=== PATIENT | female | born 1955 | race Caucasian/White ===

== ENCOUNTER → 2021-06-27 | Outpatient (CLI) | payer BC | LOC: MC.RAD 08:59 | DX: Z12.31 Encounter for screening mammogram for malignant neoplasm of breast (principal); R92.0 Mammographic microcalcification found on diagnostic imaging of breast ==

== ENCOUNTER → 2021-07-04 | Outpatient (CLI) | payer BC | LOC: MC.RAD 09:00 | DX: R92.0 Mammographic microcalcification found on diagnostic imaging of breast (principal) ==

== ENCOUNTER → 2021-07-16 | Outpatient (CLI) | payer BC | LOC: MC.RAD 08:23 | DX: N63.10 Unspecified lump in the right breast, unspecified quadrant (principal) ==

== ENCOUNTER → 2021-07-31 | Outpatient (CLI) | payer BC ==
[~2021-07-31] MED LIST: MULTI VITAMINS1 TAB PO; NORCO 325 MG-51 TAB PO; VITAMIN B COMPL1 T16 PO; VITAMIN C500 MG PO
== END ==
LOC: MC.RAD 13:29
DX: Z01.818 Encounter for other preprocedural examination (principal); N63.10 Unspecified lump in the right breast, unspecified quadrant

== ENCOUNTER 2021-08-05 07:26 | Day surgery (SDC) | payer BC ==
[~2021-08-05] VITALS: Ht 172.7 cm; Wt 80.7 kg
[2021-08-05] MEDS ORDERED: MULTI VITAMINS1 TAB PO (08:09)
[2021-08-05] MEDS ORDERED: VITAMIN C500 MG PO (08:09)
[2021-08-05] MEDS ORDERED: VITAMIN B COMPL1 T16 PO (08:11)
[2021-08-05 08:23] VITALS: BP 139/81; PULSE 63; TEMP 97.9
[2021-08-05 10:30] VITALS: BP 119/58; PULSE 69; TEMP 97.3
--- NOTE | 2021-08-05 10:30 | NUR ---
Patient escorted to patient entrace via wheelchair by SOPHIE Araiza. Patient left in the care of her .
--- NOTE | 2021-08-05 10:30 | NUR ---
Patient arrived back into [facility] from OR. Report received from SOPHIE Montgomery and MARTA Vogel. Patient complaining of pain. Awakens to voical stimuli.
[2021-08-05] MEDS ORDERED: NORCO 325 MG-51 TAB PO (10:36)
--- NOTE | 2021-08-05 10:43 | NUR ---
Patient reports having pain. PRN toradol given per MAR. Patient requesting water and toast. Tolerating both well.
[2021-08-05 10:45] VITALS: BP 122/55; PULSE 59
[2021-08-05 11:00] VITALS: BP 125/57; PULSE 65
--- NOTE | 2021-08-05 11:20 | NUR ---
Patient reporting pain is tolerable but discomfort is present. Tolerated food and drink well. Voided. Went through discharge instructions with patient and her , Osmany, questions answered, verbalized understanding to education. IV removed without complications. Patient got dressed with the assistance of her .
== END 2021-08-05 11:30 | disposition home or self-care (01) ==
LOC: SDCO 07:26
DX: D05.11 Intraductal carcinoma in situ of right breast (principal); J30.9 Allergic rhinitis, unspecified; Z79.899 Other long term (current) drug therapy; Z90.89 Acquired absence of other organs; Z80.3 Family history of malignant neoplasm of breast; Z82.49 Family history of ischemic heart disease and other diseases of the circulatory system; Z80.1 Family history of malignant neoplasm of trachea, bronchus and lung; Z80.0 Family history of malignant neoplasm of digestive organs
CPT/HCPCS: A4648; J0690; J1885; J2250; J2704; J7120

== ENCOUNTER 2021-08-14 09:24 | Day surgery (SDC) | payer BC ==
[~2021-08-14] VITALS: Ht 172.7 cm; Wt 79.6 kg
[2021-08-14 10:43] VITALS: BP 144/74; PULSE 72; TEMP 98.1
[2021-08-14 11:48] VITALS: BP 97/45; PULSE 66; TEMP 98.1
--- NOTE | 2021-08-14 11:48 | NUR ---
PATIENT TRANSPORT FROM OR TO [facility] ACCOMPANIED BY OR STAFF.PATIENT RESTING WITH EYES CLOSED AND EVEN RESPIRATIONS. MONITORS APPLIED. BLOOD PRESSURE 97/45. PATIENT DOES TALK WITH STAFF. VERBAL REPORT RECEIVED. 1152 PATIENT HEAD SET UP AND PATIENT DRINKS WATER.
[2021-08-14 12:00] VITALS: BP 118/70; PULSE 51
--- NOTE | 2021-08-14 12:00 | NUR ---
BLOOD PRESSURE IMPROVED OTHER VITALS ARE STABLE. PATIENT STATES INCISION IS SORE BUT TOLERABLE. PATIENT TOLERATES WATER WITHOUT PROBLEMS. PATIENT GIVEN TOAST TO EAT.
[2021-08-14 12:15] VITALS: BP 156/75; PULSE 50
--- NOTE | 2021-08-14 12:15 | NUR ---
VSS ON ROOM AIR. PATIENT TOLERATES FOOD AND DRINKS WITHOUT PROBLEMS. PATIENT TALKS WITH . PATIENT STATES DISCOMFORT IS TOLERABLE.
[2021-08-14 12:30] VITALS: BP 134/59; PULSE 53
--- NOTE | 2021-08-14 12:30 | NUR ---
VSS ON ROOM AIR. PATIENT REQUESTS MEDICATION FOR DISCOMFORT. 1242 PATIENT GIVEN TYENOL 500MG PO ORDERED.
[2021-08-14 12:51] VITALS: BP 117/54; PULSE 61
--- NOTE | 2021-08-14 12:51 | NUR ---
VSS ON ROOM AIR. PATIENT DENIES LIGHTHEADEDNESS AND DIZZINESS. PATIENT TALKS WITH . DRESSING TO RIGHT BREAST IS CDI. HEART SOUNDS S1,S2 AND REGULAR. 1255 DISCHARGE INSTRUCTIONS GIVEN VERBAL AND DISCHARGE PACKET PROVIDED. QUESTIONS ANSWERED AND PATIENT AND VOICED UNDERSTANDING. IV DC'D WITH CATHETER TIP INTACT. PRESSURE AND BANDAGE APPLIED. PATIENT CHANGES INTO STREET CLOTHES. 1315 PATIENT DISCHARGED PER WHEEL CHAIR [facility] .
== END 2021-08-14 13:15 | disposition home or self-care (01) ==
LOC: SDCO 09:24
DX: N62 Hypertrophy of breast (principal); Z79.899 Other long term (current) drug therapy; Z80.0 Family history of malignant neoplasm of digestive organs; Z82.49 Family history of ischemic heart disease and other diseases of the circulatory system; Z80.3 Family history of malignant neoplasm of breast; Z80.1 Family history of malignant neoplasm of trachea, bronchus and lung
CPT/HCPCS: A4648; J0690; J2250; J2405; J2704; J3010; J7120

== ENCOUNTER 2021-11-07 07:04 | Day surgery (SDC) | payer BC ==
[~2021-11-07] VITALS: Ht 170.2 cm; Wt 79.1 kg
[2021-11-07 08:12] VITALS: BP 147/83; PULSE 90; TEMP 97.7
[2021-11-07 09:08] VITALS: BP 114/74; PULSE 66; TEMP 98
--- NOTE | 2021-11-07 09:08 | NUR ---
Pt to [place] [facility], alert and oriented x3, VSS, at bedside, pt denies pain or nausea. Provided with a muffin and coffee. Call light in reach.
[2021-11-07 09:25] VITALS: BP 124/78; PULSE 67
[2021-11-07 09:40] VITALS: BP 114/66; PULSE 71
--- NOTE | 2021-11-07 09:45 | NUR ---
Pt talks with Dr. Reyes and then discharge instructions provided. IV d/c'd and pt taken out via wheelchair by RUSSEL Hernandez at 0950 and left in care of her .
[2021-11-07 14:51] VITALS: BP 114/74; PULSE 67
== END 2021-11-07 09:50 | disposition home or self-care (01) ==
LOC: SDCO 07:04
DX: Z12.11 Encounter for screening for malignant neoplasm of colon (principal); K22.70 Barrett's esophagus without dysplasia; Q27.33 Arteriovenous malformation of digestive system vessel; K31.7 Polyp of stomach and duodenum; K22.89 Other specified disease of esophagus; K64.0 First degree hemorrhoids; K62.89 Other specified diseases of anus and rectum; K57.30 Diverticulosis of large intestine without perforation or abscess without bleeding; Z15.09 Genetic susceptibility to other malignant neoplasm; Z85.3 Personal history of malignant neoplasm of breast
CPT/HCPCS: J2704; J7120

== ENCOUNTER 2022-11-13 06:59 | Day surgery (SDC) | payer BC ==
[~2022-11-13] VITALS: Ht 170.2 cm; Wt 79.0 kg
[2022-11-13 08:27] VITALS: BP 137/85; PULSE 67; TEMP 97.1
[2022-11-13] MEDS ORDERED: PRILOTC (08:32)
[2022-11-13] MEDS ORDERED: ARIMIDEX1 MG PO (08:33)
[2022-11-13] MEDS ORDERED: ASPIRIN 81M81 MG/TA2 PO (08:33)
[2022-11-13 08:47] VITALS: BP 111/63; PULSE 58; TEMP 97.1
[2022-11-13 09:02] VITALS: BP 110/71; PULSE 56
[2022-11-13 09:17] VITALS: BP 126/75; PULSE 60
[2022-11-13 09:30] VITALS: BP 124/68; PULSE 64
--- NOTE | 2022-11-13 09:35 | NUR ---
0847 RETURNS TO ROOM 6 PER CART. AWAKE, ALERT. RESP UNLABORED. AMBULATES TO RECLINER WITH STANDBY ASSIST. DENIES NAUSEA OR ABD PAIN. VITAL SIGNS OBTAINED. CALL LIGHT AT SIDE. IN ROOM 0900 TOLERATES PO MUFFIN, WATER AND COFFEE WITHOUT NAUSEA. 81141 DISCHARGE INSTRUCTIONS REVIEWED. PATIENT VERBALIZES UNDERSTANDING. COPY PROVIDED IN DISCHARGE FOLDER 0920 DR. GARNICA HERE TO VISIT WITH PATIENT 0930 DRESSES SELF. CONTINUES TO DENY NAUSEA OR ABD PAIN
== END 2022-11-13 09:35 | disposition home or self-care (01) ==
LOC: SDCO 06:59
DX: Z12.11 Encounter for screening for malignant neoplasm of colon (principal); D12.3 Benign neoplasm of transverse colon; Z15.09 Genetic susceptibility to other malignant neoplasm; Z80.0 Family history of malignant neoplasm of digestive organs
CPT/HCPCS: J2704; J3010; J7120